=== PATIENT | male | born 1955 | race Two or more races ===

== ENCOUNTER → 2019-10-19 13:35 | Outpatient (CLI) | payer MEDICARE, OTHER ==
[2016-07-11 13:33] VITALS: BMI 29.7
[~2019-10-19 13:35] MED LIST: ADVAIR 100/501 DISK INH; BAYER CHEWABLE81 MG PO; BRILINTA90 MG PO; MUCINEX1200 MG/BO PO; PRAVACHOL40 MG PO; SINGULAIR10 MG PO; STERAPRED DS 1210 MG PO; ZPAK PO
== END | disposition home or self-care (01) ==
LOC: D.CT 13:35
PROVIDERS: ATTEND Family Medicine
DX: K57.32 Diverticulitis of large intestine without perforation or abscess without bleeding (principal)

== ENCOUNTER → 2020-06-23 10:46 | Outpatient (CLI) | payer MEDICARE, OTHER ==
[2016-07-11 13:33] VITALS: BMI 29.7
--- NOTE | ~2020-06-23 | EC ---
PATIENT:TOM DORAN JR DATE OF SERVICE: 06/23/20 SEX: M MEDICAL RECORD: [id number] DATE OF : 53 [facility] AGE OF PATIENT: 65 ADMISSION DATE: 06/23/20 REFERRING PHYSICIAN: INTERPRETING PHYSICIAN: CHEYENNE SUAZO MD ECHOCARDIOGRAM REPORT ECHO CHARGES 4 ECHO COMPLETE Date: 06/23/20 CLINICAL DIAGNOSIS: CAD/ASSESS EF/VALVES ECHOCARDIOGRAPHIC MEASUREMENTS (adult normal given) AC root (d.<3.7cm) 3.9 cm LV Septum d (<1.2 cm> 1.4 cm Valve Excursion 2.3 cm LV Septum (systole) 1.7 cm Left Atria (s.<4.0cm> 3.3 cm LVPW d(<1.2cm) 1.5 cm RV (d.<2.3cm) 3.7 cm LVPW (sytole) 1.9 cm LV diastole(<5.6CM) 4.7 cm MV E-F(>70mm/sec) cm LV systole 2.9 cm LVOT Diameter 2.0 cm MV exc.(>10mm) 1.8 cm Est.ejection fraction (50-75%) % DOPPLER: LVIT cm/sec A 86.0 cm/sec E 66.0 cm/sec LA cm/sec RVSP 26 mmHg LVOT 118 cm/sec AOP1/2T m/s Asc. Ao 135 cm/sec RVOT 78 cm/sec RA cm/sec PA 146 cm/sec AV Gradient Peak 7.25 mmHg AV Mean 3.81 mmHg AV Area 2.8 cm MV Gradient Peak 4.61 mmHg MV Mean 1.29 mmHg MV Area cm COMMENTS: Consulting Services Associate: 2 DELIA RUIZ Buyer Renter: 3 Dr. Dowling TAPE# PACS Pericardial Effusion N DATE OF SERVICE: Adequate 2D, color flow imaging, spectral Doppler, and M-Mode. Mild LVH. LV internal dimensions are normal. Wall motion normal. EF greater than or equal to 55%. Aortic valve is tricuspid. No evidence of stenosis by Doppler interrogation. Left atrium is normal. Mitral valve shows no prolapse. Trivial MR. Right-sided chambers are grossly normal. Trivial TR. TRANSINT:[id number] Voice Confirmation ID: [id number] DOCUMENT ID: [id number] ECHOCARDIOGRAM REPORT [id number] TOM DORAN JR, GREGORY A MD CC: [id number] DICTATION DATE: 06/27/20 1343 BRICK LOADER: 06/27/20 2308 DEP CLI 06/23/[address] [id number]
== END | disposition home or self-care (01) ==
LOC: D.HCCECHO 10:46
PROVIDERS: ATTEND Internal Medicine Interventional Cardiology
DX: I25.10 Atherosclerotic heart disease of native coronary artery without angina pectoris (principal)